=== PATIENT | male | born 1985 | race Two or more races ===

== ENCOUNTER 2019-11-02 13:39 | Inpatient (IN) | payer MEDICAID, OTHER ==
[~2019-11-02] VITALS: Ht 162.6 cm; Wt 102.2 kg
[2019-11-02] MEDS ORDERED: PANTOPRAZOLE 40 MG/10 ML VIAL INJ IV STA (13:48)
[2019-11-02] MEDS ORDERED: SODIUM CHLORIDE 0.9% 1,000 ML IVB ONE (13:48)
[2019-11-02] MEDS ORDERED: MORPHINE SULFATE 4 MG/ML SYR/VIAL IV ONE (14:00)
[2019-11-02] MEDS ORDERED: PROCHLORPERAZINE EDISYLATE 5 MG/ML 2ML VIAL IV ONE (14:00)
[2019-11-02 14:15] LABS: Basophils # (auto) 0.1 10 ^3/uL (0-0.2); Basophils % (auto) 0.9 % (0.0-2.0); Eosinophils # (auto) 0.1 10 ^3/uL (0-0.8); Eosinophils % (auto) 1.1 % (0.0-7.0); Hematocrit 46.3 % (41.0-53.0); Hemoglobin 15.7 g/dL (13.5-17.5); Lymphocytes # (auto) 3.8 10 ^3/uL (0.4-5.4); Lymphocytes % (auto) 36.6 % (10.0-50.0); Mean Corpuscular Hemoglobin 28.6 pg (28.0-32.0); Mean Corpuscular Hgb Conc. 33.9 g/dL (32.0-36.0); Mean Corpuscular Volume 84.4 fL (80.0-100.0); Monocytes # (auto) 0.6 10 ^3/uL (0-1.3); Monocytes % (auto) 5.8 % (0.0-12.0); Neutrophils # (auto) 5.8 10 ^3/uL (1.6-8.6); Neutrophils % (auto) 55.6 % (37.0-80.0); Nucleated Red Blood Cells % 0.2 %; Platelet Count (auto) 268 10^3/uL (140-450); Red Blood Cells 5.48 10^6/uL (4.5-5.90); Red Cell Distribution Width 13.8 % (11.8-14.3); White Blood Cell 10.4 10^3/uL (4.4-10.8)
[2019-11-02 14:39] LABS: Albumin 3.5 g/dL (3.4-5.0); Calcium 8.8 mg/dL (8.5-10.1); Potassium 3.5 mmol/L (3.5-5.1)
[2019-11-02 14:47] LABS: BUN/Creatinine Ratio 18.3; Bilirubin, Total 0.6 mg/dL (0.2-1.0); Total Protein 8.6 g/dL (6.4-8.2)
[2019-11-02 16:31] LABS: Urine Bacteria NONE SEEN /hpf (None Seen); Urine Blood Negative /uL (Negative); Urine Mucus FEW (None Seen); Urine Specific Gravity 1.031 (1.001-1.035); Urine WBC 1 /hpf (0 - 3)
[2019-11-02 16:46] LABS: Alcohol, Urine < 3.0 mg/dL (0-10); Amphetamine Screen, Urine NEGATIVE (NEGATIVE); Barbiturate Scree,Urine NEGATIVE (NEGATIVE); Benzodiazephine Screen, Urine NEGATIVE (NEGATIVE); Cannabinoid Screen, Urine NEGATIVE (NEGATIVE); Cocaine Screen, Urine NEGATIVE (NEGATIVE); Phencyclidine Screen, Urine NEGATIVE (NEGATIVE)
[2019-11-02 16:54] LABS: Opiate Scree,Urine POSITIVE (NEGATIVE)
[2019-11-02] MEDS ORDERED: HYDROmorphone HCL 2 MG/ML VL IV ONE (17:30)
[2019-11-02] MEDS ORDERED: ONDANSETRON HCL 4 MG/2 ML VIAL IV ONE (17:30)
[2019-11-02] MEDS ORDERED: ONDANSETRON HCL 4 MG/2 ML VIAL IV PRN (18:15)
[2019-11-02] MEDS ORDERED: NITROGLYCERIN 0.4 MG SL TAB SL PRN (18:15)
[2019-11-02] MEDS: SODIUM CHLORIDE 0.9% 1,000 ML IV SCH (18:15)
[2019-11-02] MEDS ORDERED: DEXTROSE (50%) 50ML SYRG IV PRN (18:15)
[2019-11-02] MEDS ORDERED: MORPHINE SULF INJ 2 MG/ML SYRINGE 1ML IV PRN (18:15)
[2019-11-02] MEDS ORDERED: IOHEXOL 300 MG/ML 100ML BOTTLE IJ ONE (18:24)
[2019-11-02 21:11] VITALS: BP 134/87
[2019-11-02] MEDS ORDERED: INSU1INJ19 SC (21:27)
[2019-11-02] MEDS: InsuLIN REG 1unit/0.01ml Soln (100units/ml) SC SCH (21:30)
[2019-11-02] MEDS: ACCU-CHEK COMFORT CURVE STRIP VI SCH (21:30)
[2019-11-02] MEDS: HYDROmorphone HCL 2 MG/ML VL IV PRN (22:24)
[2019-11-02 22:49] VITALS: BP 138/87
[2019-11-03] MEDS: HYDROmorphone HCL 2 MG/ML VL IV PRN ×5 (02:27→21:23)
[2019-11-03] MEDS: SODIUM CHLORIDE 0.9% 1,000 ML IV SCH ×2 (04:15→06:07)
[2019-11-03 05:00] VITALS: BP 117/61
[2019-11-03 05:44] LABS: Basophils # (auto) 0.1 10 ^3/uL (0-0.2); Basophils % (auto) 0.4 % (0.0-2.0); Eosinophils # (auto) 0 10 ^3/uL (0-0.8); Eosinophils % (auto) 0.2 % (0.0-7.0); Hematocrit 44.4 % (41.0-53.0); Hemoglobin 14.8 g/dL (13.5-17.5); Lymphocytes # (auto) 2.4 10 ^3/uL (0.4-5.4); Lymphocytes % (auto) 20.2 % (10.0-50.0); Mean Corpuscular Hemoglobin 28.4 pg (28.0-32.0); Mean Corpuscular Hgb Conc. 33.4 g/dL (32.0-36.0); Mean Corpuscular Volume 85.2 fL (80.0-100.0); Monocytes # (auto) 0.8 10 ^3/uL (0-1.3); Monocytes % (auto) 6.8 % (0.0-12.0); Neutrophils # (auto) 8.8 10 ^3/uL (1.6-8.6); Neutrophils % (auto) 72.4 % (37.0-80.0); Nucleated Red Blood Cells % 0.1 %; Platelet Count (auto) 265 10^3/uL (140-450); Red Blood Cells 5.21 10^6/uL (4.5-5.90); Red Cell Distribution Width 14.3 % (11.8-14.3); White Blood Cell 12.1 10^3/uL (4.4-10.8)
[2019-11-03 06:02] LABS: Potassium 3.6 mmol/L (3.5-5.1)
[2019-11-03 06:09] LABS: Albumin 3.4 g/dL (3.4-5.0); BUN/Creatinine Ratio 15.9; Bilirubin, Total 0.5 mg/dL (0.2-1.0); Calcium 8.3 mg/dL (8.5-10.1); Total Protein 8.1 g/dL (6.4-8.2)
[2019-11-03] MEDS: ACCU-CHEK COMFORT CURVE STRIP VI SCH ×3 (06:28→16:59)
[2019-11-03] MEDS: InsuLIN REG 1unit/0.01ml Soln (100units/ml) SC SCH ×4 (06:28→22:02)
[2019-11-03 09:00] VITALS: BP 121/64
[2019-11-03] MEDS: PANTOPRAZOLE 40 MG/10 ML VIAL INJ IV SCH (09:50)
[2019-11-03 13:00] VITALS: BP 122/58
[2019-11-03] MEDS: LACTATED RINGER'S 1,000 ML IV SCH ×2 (13:20→21:22)
[2019-11-03 16:32] VITALS: BP 149/81
[2019-11-03 22:00] VITALS: BP 123/75
[2019-11-03] MEDS ORDERED: SODIUM CHLORIDE 0.9% 1,000 ML IV ONE (23:00)
[2019-11-04] MEDS: ACCU-CHEK COMFORT CURVE STRIP VI SCH ×3 (01:35→11:34)
[2019-11-04] MEDS: LACTATED RINGER'S 1,000 ML IV SCH ×2 (02:39→08:28)
[2019-11-04 05:00] VITALS: BP 111/49
[2019-11-04] MEDS: InsuLIN REG 1unit/0.01ml Soln (100units/ml) SC SCH ×2 (06:31→11:39)
[2019-11-04 06:48] LABS: Basophils # (auto) 0 10 ^3/uL (0-0.2); Basophils % (auto) 0.4 % (0.0-2.0); Eosinophils # (auto) 0 10 ^3/uL (0-0.8); Eosinophils % (auto) 0.2 % (0.0-7.0); Hematocrit 41.4 % (41.0-53.0); Hemoglobin 13.9 g/dL (13.5-17.5); Lymphocytes # (auto) 1.5 10 ^3/uL (0.4-5.4); Lymphocytes % (auto) 14.4 % (10.0-50.0); Mean Corpuscular Hemoglobin 28.9 pg (28.0-32.0); Mean Corpuscular Hgb Conc. 33.5 g/dL (32.0-36.0); Mean Corpuscular Volume 86.4 fL (80.0-100.0); Monocytes # (auto) 0.9 10 ^3/uL (0-1.3); Monocytes % (auto) 8.1 % (0.0-12.0); Neutrophils # (auto) 8.2 10 ^3/uL (1.6-8.6); Neutrophils % (auto) 76.9 % (37.0-80.0); Platelet Count (auto) 230 10^3/uL (140-450); Red Blood Cells 4.79 10^6/uL (4.5-5.90); Red Cell Distribution Width 14.5 % (11.8-14.3); White Blood Cell 10.6 10^3/uL (4.4-10.8)
[2019-11-04 07:08] LABS: BUN/Creatinine Ratio 8.2; Calcium 7.9 mg/dL (8.5-10.1); Potassium 3.7 mmol/L (3.5-5.1)
[2019-11-04 08:00] VITALS: BP 120/69
[2019-11-04 09:00] VITALS: BP 120/69
[2019-11-04] MEDS: PANTOPRAZOLE 40 MG/10 ML VIAL INJ IV SCH (09:10)
[2019-11-04] MEDS ORDERED: ATOR20TA50 PO (12:47)
[2019-11-04] MEDS ORDERED: ATORVASTATIN 20 MG TAB PO SCH (22:00)
== END 2019-11-04 15:20 | disposition home health service (06) | DRG 282 ==
LOC: ER 13:39 → EDBD 13:39 → OVERFLOW 13:40 → WEST WING 20:29
PROVIDERS: ADMIT Nurse Practitioner Acute Care; ATTEND Internal Medicine
DX: K85.90 Acute pancreatitis without necrosis or infection, unspecified (principal); E11.65 Type 2 diabetes mellitus with hyperglycemia; K86.1 Other chronic pancreatitis; E87.1 Hypo-osmolality and hyponatremia; E78.5 Hyperlipidemia, unspecified; Z79.4 Long term (current) use of insulin; E66.9 Obesity, unspecified; Z87.19 Personal history of other diseases of the digestive system; Z68.34 Body mass index [BMI] 34.0-34.9, adult
CPT/HCPCS: 36415; 74177; 76705; 80048; 80053; 80061; 80307; 81001; 82962; 83690; 85025; 96361; 96374; 96375; C9113; G0378; J1815; J2405